=== PATIENT | female | born 1970 | race Caucasian/White ===

== ENCOUNTER → 2020-04-14 | Outpatient (CLI) | payer BC, OTHER ==
[~2020-04-14] MED LIST: CLONAZEPAM 0.50.5 M1 PO; DIABETA PO; IBUPROFEN 600600 M1; IRON325; LEXAPRO 10 MG T10 M1 PO; LORYNA 3 MG-0.1 EACH PO; NORCO 5-325 TA1 EACH; PRENATAL; PRILOSEC OTC20 MG PO; TUMS PO; ZANTAC 150MG T150 MG PO
== END ==
LOC: SJCVCIMAG 10:02
PROVIDERS: ATTEND Internal Medicine
DX: R00.2 Palpitations (principal); R07.89 Other chest pain; E78.5 Hyperlipidemia, unspecified